=== PATIENT | female | born 1965 | race Caucasian/White ===

== ENCOUNTER 2018-07-07 06:56 | Outpatient (CLI) | payer MEDICARE ==
[2018-07-07 17:49] LABS: Hemoglobin 14.9 g/dL (12.0-16.0); Mean Corpuscular HGB CONC 32.8 g/dL (32.0-36.0); Mean Corpuscular Hemoglobin 30.1 pg (27.0-31.0); Mean Corpuscular Volume 91.6 fL (78.0-98.0); Mean Platelet Volume 6.3 fL (7.4-10.4); Platelet Count 335 thou/uL (130-400); RBC Distribution Width 12.1 % (11.5-14.5); Red Blood Cell (RBC) Count 4.95 mill/uL (4.20-5.40); White Blood Cell (WBC) Count 9.1 thou/uL (4.8-10.8)
[2018-07-07 18:14] LABS: Anion Gap 18 mmol/L (10-20); BUN (Urea Nitrogen) 11 mg/dL (7.0-18.7); Calc. Creatinine Clearance 0 mL/min (70-130); Calcium 10.4 mg/dL (7.8-10.44); Carbon Dioxide 25 mmol/L (22-29); Chloride 103 mmol/L (98-107); Estimated GFR-MDRD Greater than 90; Glucose 108 mg/dL (70-105); Potassium 4.2 mmol/L (3.5-5.1); Sodium 142 mmol/L (136-145)
--- NOTE | 2018-07-07 22:00 | HP ---
DATE OF SURGERY: 07/10/2018. HISTORY OF PRESENT ILLNESS: Alejandra An is a 52-year-old white female with a history of bipolar disorder who has had some irregular menstrual bleeding, on and off since 2017. She was seen by Dr. Barboza, August 2017 and had an endometrial biopsy done that was benign. She also has a thickened endometrial lining seen on transvaginal ultrasound at 16 mm. She had been counseled by Dr. Barboza to get a D and C and hysteroscopy evaluation due to the thickened lining and she deferred the recommendation. She continues to use Estrace for painful intercourse. She was told numerous times to stop. Her most recent ultrasound again of the endometrial lining on April 07, 2018 was 12 mm, which is again was thickened. She has no other gynecologic complaints. Her FSH level in August 2017 was 39, consistent with menopause. PAST MEDICAL HISTORY: Significant for bipolar disorder and diabetes and is her primary care provider for this. Also past medical history is noted for anxiety disorder, diabetes, fibromyalgia, hypertension, migraines, epilepsy, obesity and sleep apnea. PAST SURGICAL HISTORY: Laparoscopy, oral surgery, urologic surgery, back and spine surgery, numerous, dating back to 1997, 1998 and 2017, and tonsillectomy. CURRENT MEDICATIONS: 1. Atorvastatin 20 mg tablet. 2. BuSpar 50 mg tablet. 3. Clonazepam 1 mg p.o. b.i.d. p.r.n. 4. Cyclobenzaprine 10 mg q.8 hours p.r.n. 5. Equetro 200 mg tablet daily. 6. Estradiol 0.1 mg cream vaginally. 7. Estradiol 1 mcg tablet. 8. Hysingla ER 40 mg daily. 9. Lisinopril 2.5 mg daily. 10. Lyrica 150 mg tablet daily. 11. Medroxyprogesterone acetate 10 mg daily. 12. Meloxicam 50 mg daily. 13. Metformin 1000 mg p.o. a.m. and metformin 500 mg p.m. ALLERGIES: REPORTED ERYTHROMYCIN. PHYSICAL EXAMINATION: VITAL SIGNS: Height 5 feet 3 inches, weight 184 pounds, BMI 32.6, blood pressure 110/74, pulse regular at 90, respirations 18. HEENT: Normocephalic, atraumatic. ENT, no external nose lesions. NECK: Supple. No thyromegaly or masses. CHEST: Clear to auscultation. HEART: Regular rate and rhythm. S1, S2 heart sounds. ABDOMEN: Soft, nontender, nondistended with no palpable masses. No organomegaly. PELVIC: Vulva and vagina had no lesions. Cervix had no lesions. Uterus, small and nontender. Adnexa, nontender with no masses. EXTREMITIES: Showed full range of motion. LABORATORY DATA: Pap smear obtained, March 2016, was negative along with negative HPV. ASSESSMENT: A 52-year-old menopausal white female with continued irregular bleeding despite FSH level of 39. Endometrial lining is thickened at 12 mm. Further evaluation with hysteroscopy, and D and C with possible polyp removal is indicated. The patient is set for surgery on 07/10/2018. Job ID: [id number]
== END 2018-07-07 06:57 | disposition home or self-care (01) ==
LOC: LABBT 06:56
PROVIDERS: ATTEND Obstetrics & Gynecology
DX: Z01.812 Encounter for preprocedural laboratory examination (principal); N93.9 Abnormal uterine and vaginal bleeding, unspecified
CPT/HCPCS: 80048; 85027; 86850; 86900; 86901

== ENCOUNTER 2018-07-10 09:54 | Day surgery (SDC) | payer MEDICARE ==
[2018-07-07 16:39] VITALS: BMI 32.4
[2018-07-10] MEDS ORDERED: CEFAZOLIN 2 GM/50 ML BAG ONE (10:28)
[2018-07-10] MEDS ORDERED: Fentanyl 250 MCG/5 ML VIAL ONE (11:22)
[2018-07-10] MEDS ORDERED: PROPOFOL 200 MG/20 ML VIAL ONE (12:12)
[2018-07-10] MEDS ORDERED: Glycopyrrolate 0.2 MG/ML 5 ML SYRINGE ONE (12:12)
[2018-07-10] MEDS ORDERED: Lidocaine 1% PF 5 ML VIAL ONE (12:12)
[2018-07-10] MEDS ORDERED: Metoclopramide HCl 10 MG/2 ML VIAL ONE (12:12)
[2018-07-10] MEDS ORDERED: Ondansetron PF 4 MG/2 ML Vial ONE (12:12)
[2018-07-10] MEDS ORDERED: Scopolamine 1.5 mg/72 hour Patch ONE (12:17)
[2018-07-10] MEDS ORDERED: Fentanyl 100 MCG/2 ML VIAL ONE (13:24)
--- NOTE | 2018-07-10 13:32 | OP ---
DATE OF PROCEDURE: 07/10/2018 PREOPERATIVE DIAGNOSES: A 52-year-old white female with irregular, abnormal uterine bleeding and thickened endometrial lining. POSTOPERATIVE DIAGNOSES: A 52-year-old white female with irregular, abnormal uterine bleeding and thickened endometrial lining with endometrial polyp and apparent fundal submucosal fibroid. PROCEDURES PERFORMED: Diagnostic hysteroscopy with D and C, and resection of endometrial polyp, and submucosal fibroid with each TruClear INCISOR 5 mm device. ANESTHESIA: LMA general. COMPLICATIONS: None. COUNTS: Correct x2. PATHOLOGY: Endometrial curettings and masses. FLUID DEFICIT: Distention media 600 mL of normal saline. FINDINGS: 1. Normal-appearing ectocervix and endocervical canal. 2. Endometrial cavity noted to have a polypoid lesion in the lower uterine segment on the patient's right side along with approximately 1.5 cm upper spherical shaped lesion in the upper fundus, most consistent with submucosal fibroid. Majority of the of the material and lesions were resected. DISPOSITION: Recovery room, stable and then plan for discharge home from Day Stay. DESCRIPTION OF PROCEDURE: The patient previously received informed consent in regard to surgery. She was taken back to the operating room, where she received a general anesthetic agent with LMA device. She was placed in the dorsal lithotomy position with Amos stirrups, prepped and draped in usual sterile fashion. In and out catheterization in the the bladder was performed at this time. At this time, a speculum was placed in the vagina and anterior lip of the cervix was grasped with a tenaculum. The uterus sounded to 9 cm. The cervix was then sequentially dilated to a size 18 Tovar dilator. The diagnostic TruClear system hysteroscope was introduced through the cervical os into the endometrial cavity with the previously mentioned findings. A 5-mm INCISOR device was then utilized to excise and resect any polypoid looking lesion and also the submucosal mass. Majority of this had been removed during visualization and then sharp curettage of the cavity was then performed after this removing further tissue along with the stone grasper that grasped the remainder of what appeared to be the fibroid type tissue. Hysteroscope was reintroduced and the cavity appeared generally clean with the lesions being resected. Hemostasis was confirmed. Fluid deficit was noted to be 600 mL of normal saline. No active bleeding from the cervical os was seen. The tenaculum and speculum were removed. The patient was then awakened from anesthesia and transferred to recovery room in stable condition. Job ID: [id number]
== END 2018-07-10 14:40 | disposition home or self-care (01) ==
LOC: SDC 09:54
PROVIDERS: ATTEND Obstetrics & Gynecology
PROC: 0UB98ZX Excision of Uterus, Via Natural or Artificial Opening Endoscopic, Diagnostic (ICD-10-PCS; principal; 2018-07-10)
PROC: 0UB98ZZ Excision of Uterus, Via Natural or Artificial Opening Endoscopic (ICD-10-PCS; 2018-07-10)
DX: D25.0 Submucous leiomyoma of uterus (principal); N84.0 Polyp of corpus uteri; F31.9 Bipolar disorder, unspecified; E11.9 Type 2 diabetes mellitus without complications; M79.7 Fibromyalgia; F41.9 Anxiety disorder, unspecified; I10 Essential (primary) hypertension; G47.30 Sleep apnea, unspecified; G40.909 Epilepsy, unspecified, not intractable, without status epilepticus; E66.9 Obesity, unspecified; Z68.32 Body mass index [BMI] 32.0-32.9, adult; Z79.84 Long term (current) use of oral hypoglycemic drugs; Z79.1 Long term (current) use of non-steroidal anti-inflammatories (NSAID); Z79.899 Other long term (current) drug therapy; Z88.8 Allergy status to other drugs, medicaments and biological substances
CPT/HCPCS: 86850; 86900; 86901; 88305; J2001; J2405; J2704; J2765; J3010

== ENCOUNTER 2019-01-15 11:41 | Outpatient (CLI) | payer MEDICARE ==
--- NOTE | 2019-01-15 13:28 | MRI ---
MRI Cervical Spine WO Con History: M [age] cervical pain Comparison: MRI 2012 Findings: ACDF hardware at C5-C6. No marrow infiltrative process. Incompletely nodule right lobe of the thyroid. Cerebral tonsils terminate at the level of the foramen magnum. Cord signal is normal. Levels are as follows: C2/C3: Normal disc hydration. No neural foraminal or spinal canal narrowing. C3/C4: Mild degenerative disc space height loss anteriorly. Central posterior disc protrusion. Efface ment of the ventral CSF space. Spinal canal measures approximately centimeter. No significant neural foraminal narrowing. C4/C5: Mild degenerative disc space height loss. Broad-based posterior disc osteophyte complex. Moder ate right and left neural foraminal narrowing. Mild effacement of CSF space with spinal canal measuring approximately 9 mm. C5/C6: Prior discectomy change. No neural foraminal or spinal canal narrowing. C6/C7: Mild facet arthropathy. No neural foraminal or spinal canal narrowing. C7/T1: Normal disc hydration. No neural foraminal or spinal canal narrowing. Impression: Mild multilevel spondylosis as described.
--- NOTE | 2019-01-15 14:40 | RAD ---
XR Cerv Sp Ap Lat STANDARD History: M [age] cervical pain Comparison: MRI same day Findings: C5-C6 ACDF hardware without complication. Moderate C4/C5 6/C7 degenerative disc space narro wing. 1-2 mm C4 over C5 retrolisthesis with decrease with flexion increases with extension. Impression: Mild increased translation at C4/C5.
--- NOTE | 2019-01-15 14:51 | MRI ---
MRI LUMBAR SPINE WITHOUT CONTRAST: 01/15/19 INDICATION: Bilateral leg and back pain. COMPARISON: Prior exam dated 01/05/16 and radiographs of the lumbar spine dated 01/15/19. FINDINGS: No acute fracture is evident. The conus is seen to terminate at approximately L1. The visualized aspects of the retroperitoneum again seen at low lying duplicated left kidney. There is susceptibility artifact likely from a generator pack within the subcutaneous tissues of the left lower back. At L5-S1, there is mild facet joint degenerative change but no appreciable central canal or neural fo raminal narrowing. At L4-5, there is no appreciable central canal or neural foraminal narrowing. There is a minimal broa d based bulge. At L3-4, there is no appreciable central canal or neural foraminal narrowing. At L2-3, there is no appreciable central canal or neural foraminal narrowing. At L1-2, there is no appreciable central canal or neural foraminal narrowing. At T12-L1, there is no appreciable central canal or neural foraminal narrowing. IMPRESSION: Mild degenerative change of the lumbar spine without appreciable central canal or neural foraminal na rrowing. POS: OFF
--- NOTE | 2019-01-15 14:55 | RAD ---
XR Lumbar Spine 2 Or 3 View History: M [age] lumbar radicular pain Comparison: MRI same day Findings: Normal appearance of the vertebra and intervertebral discs. Dorsal column stimulator leads are noted as well as the generator. Moderate vascular calcifications. No acute fracture or malalignment. No listhesis. No translation wit h flexion or extension. Impression: Normal radiographs of the lumbar spine. No abnormal translation with flexion or extension .
== END 2019-01-15 11:42 | disposition home or self-care (01) ==
LOC: MRI 11:41
PROVIDERS: ATTEND Nurse Practitioner Family
DX: M47.26 Other spondylosis with radiculopathy, lumbar region (principal); M54.2 Cervicalgia; M47.816 Spondylosis without myelopathy or radiculopathy, lumbar region
CPT/HCPCS: 72040; 72100; 72141; 72148

== ENCOUNTER 2020-04-06 10:07 | Outpatient (CLI) | payer MEDICARE ==
--- NOTE | 2020-04-06 14:09 | CT ---
CT BRAIN WITHOUT CONTRAST: 04/06/20 HISTORY: Migraine without aura. FINDINGS: No evidence of acute infarct, hemorrhage, midline shift, or abnormal extra-axial fluid collections ar e seen. The ventricular size is normal and the basilar cisterns patent. The bony calvarium is intact. The visualized paranasal sinuses and mastoid air cells are well aerated. IMPRESSION: No CT evidence of acute intracranial process. POS: AH
== END 2020-04-06 10:08 | disposition home or self-care (01) ==
LOC: SCSCT 10:07
PROVIDERS: ATTEND Psychiatry & Neurology Neurology
DX: G43.019 Migraine without aura, intractable, without status migrainosus (principal)
CPT/HCPCS: 70450

== ENCOUNTER 2021-03-15 12:47 | Outpatient (CLI) | payer MEDICARE | END 2021-03-15 12:48 | disposition home or self-care (01) | LOC: SCSRAD 12:47 | PROVIDERS: ATTEND Family Medicine | DX: M54.2 Cervicalgia (principal); M47.814 Spondylosis without myelopathy or radiculopathy, thoracic region; M47.816 Spondylosis without myelopathy or radiculopathy, lumbar region | CPT/HCPCS: 72050; 72072 ==

== ENCOUNTER 2024-01-21 12:57 | Outpatient (CLI) | payer MEDICARE | END 2024-01-21 12:58 | disposition home or self-care (01) | LOC: SCSMRI 12:57 | PROVIDERS: ATTEND Orthopaedic Surgery | DX: M75.101 Unspecified rotator cuff tear or rupture of right shoulder, not specified as traumatic (principal) ==